=== PATIENT | female | born 1970 | race Caucasian/White ===

== ENCOUNTER → 2018-07-22 | Outpatient (CLI) | payer OTHER ==
[~2018-07-22] MED LIST: ADVAIR 500/501 EA INH; CYCLOBENZAPRINE10 MG PO; DESOXIMETASONE15 G1 TOP; DIATRIZOATE MEGL/DIATRIZOA SOD 30 ML BTL PO ONE; IOPAMIDOL 370 MG/ML 200 ML INFUS..BTL INJ ONE; NEXIUM PO; PANTANASE; PERCOCET 5-3251 EACH PO; QVAR7.3 GM INH; SINGULAIR10 MG PEG; SODIUM CHLORIDE 0.9% 50ML 50 ML ONE; TYLENOL WITH C1 EACH PO
--- NOTE | 2018-07-22 18:55 | Diagnostic Imaging Report ---
EXAM: CT Abdomen and Pelvis WITH contrast INDICATION: \[id number] \S\[id number] \S\RT SIDED ABD PAIN COMPARISON: None. TECHNIQUE: Abdomen and pelvis were scanned utilizing a multidetector helical scanner from the lung base to the pubic symphysis after administration of IV contrast. Coronal and sagittal reformations were obtained. Routine protocol was performed. Scan was performed when during portal venous phase. IV CONTRAST: 100 mL of Isovue-370 ORAL CONTRAST: Gastrografin RADIATION DOSE: Total DLP: 696.3 mGy*cm Estimated effective dose: (DLP x 0.015 x size factor) mSv COMPLICATIONS: None FINDINGS: LINES and TUBES: None. LOWER THORAX: Unremarkable HEPATOBILIARY: 10 mm hypodense lesion within the liver on series 2, image 22, adjacent to the portal vein likely a cyst. No biliary ductal dilation. GALLBLADDER: Cholecystectomy. SPLEEN: No splenomegaly. PANCREAS: No focal masses or ductal dilatation. ADRENALS: No adrenal nodules KIDNEYS/URETERS: Kidneys enhance symmetrically. No hydronephrosis. No cystic or solid mass lesions. No stones. GI TRACT: Mild circumferential wall thickening of the terminal ileum and a few loops of small bowel in the right lower quadrant, better seen on coronal image 51. Large amount of retained stool throughout the ascending and transverse colon without bowel dilatation. Appendix is small in size without inflammatory changes (series 2, image 63). No diverticulosis or diverticulitis. PELVIC ORGANS/BLADDER: Hysterectomy. The urinary bladder appears unremarkable. LYMPH NODES: No lymphadenopathy. VESSELS: Unremarkable. PERITONEUM / RETROPERITONEUM: No free air or fluid. BONES: Degenerative changes at L5-S1. SOFT TISSUES: Unremarkable. IMPRESSION: 1. Non-specific wall thickening of the terminal ileum and a few loops of the small bowel in the right lower quadrant without surrounding fat stranding or fluid collections suggestive of chronic inflammatory bowel disease. No bowel dilatation. - Recommend follow-up CT abdomen and pelvis in 10-12 weeks to demonstrate stability. 2. Normal appendix. These findings were communicated via phone message directly to Mrs Marnie MIMS) on 07/22/2018 6:49 PM. Signed by: Dr. Barbra Montanez M.D. on 07/22/2018 6:51 PM
== END ==
LOC: CT 16:30
PROVIDERS: ATTEND Family Medicine
DX: R10.9 Unspecified abdominal pain (principal)
CPT/HCPCS: 74177; Q9967

== ENCOUNTER → 2018-07-29 | Day surgery (SDC) | payer OTHER ==
[~2018-07-29] MED LIST changes: -DIATRIZOATE MEGL/DIATRIZOA SOD 30 ML BTL PO ONE; +FENTANYL CITRATE/PF 100MCG/2 ML INJ ONE; +FLUTICASONE PRO16 GM; +HYOSCYAMINE SULFATE 0.5 MG/ML AMP ONE; -IOPAMIDOL 370 MG/ML 200 ML INFUS..BTL INJ ONE; +LIDOCAINE HCL 2% LOCAL INJ 5 ML SDV VIAL INJ ONE; +MIDAZOLAM HCL 2 MG/2 ML VIAL ONE; +PATADAY2.5 ML; +PROPOFOL IV EMULSION 10 MG/ML 20 ML VIAL ONE; -SODIUM CHLORIDE 0.9% 50ML 50 ML ONE; +VENTOLIN HFA18 GM INH; +ZAFIRLUKAST20 MG PO
[2018-07-29 13:44] VITALS: BP 109/78
--- NOTE | 2018-07-29 14:07 | Operative Report ---
DATE OF PROCEDURE: July 29, 2018 REFERRING PHYSICIAN: Dr. Jay Roberts PROCEDURES PERFORMED 1. Esophagogastroduodenoscopy with biopsies. 2. Colonoscopy with biopsies. INDICATIONS FOR EGD: Acid reflux and nausea. INDICATIONS FOR COLONOSCOPY: Lower abdominal pain and diarrhea. MEDICATION: Patient was done under MAC. Please see anesthesiologist's note. PROCEDURE: With the patient in the left lateral decubitus position, the flexible fiberoptic Olympus gastroscope was introduced into the esophagus under direct visualization without any difficulty. There was some patchy erythema noted in the distal esophagus. A minute nodule was noted at the GE junction that was biopsied. The scope was then advanced with ease into the stomach traversing a small sliding hiatal hernia. Mucosa overlying the antrum and the body revealed some patchy erythema and low-grade edema, and biopsies were obtained and sent to stain for H. pylori. Some minute hyperplastic appearing polyps were noted in the distal and midbody, and some were partially excised with a cold biopsy forceps. The pylorus was somewhat stenotic, but it opened up nicely with repetitive intubation with the scope, which was advanced to the 2nd portion of the duodenum. Biopsies were obtained from the proximal 2nd portion to rule out sprue considering the patient's history of diarrhea. Mucosa overlying the duodenal bulb appeared to be within normal limits. The scope was then withdrawn back into the stomach and retroflexed. The mucosa overlying the fundus and the cardia appeared to be within normal limits. The scope was then straightened out. The stomach was decompressed. The scope was subsequently withdrawn. Patient tolerated the procedure well. IMPRESSION 1. Mild distal esophagitis. 2. Minute nodule, gastroesophageal junction, biopsied. 3. Small sliding hiatal hernia. 4. Gastritis, biopsied. Biopsies sent to stain for Helicobacter pylori. 5. Gastric polyps, minute, hyperplastic appearing. Some partially excised with the cold biopsy forceps. 6. Rule out sprue. PLAN: Follow up histology. Initiate Protonix 40 mg 1 p.o. q.a.m. a.c. Patient was then turned around. After adequate lubrication of the anal canal, a flexible fiberoptic Olympus colonoscope was inserted into the rectum with ease and advanced all the way to the cecum. Mucosa overlying the cecum appeared to be within normal limits. The ileocecal valve was intubated and the scope was advanced into the terminal ileum. Biopsies were obtained. The scope was then withdrawn back into the colon. It was then withdrawn slowly. Mucosa overlying the ascending and the transverse colon appeared to be within normal limits. Mild patchy inflammatory changes were noted in the left colon and random biopsies were obtained. The scope was then retroflexed into the distal rectum and small internal hemorrhoids were noted, none of which was actively bleeding. The scope was then straightened out. It was subsequently withdrawn after securing an adequate stool specimen that was sent for the appropriate stool studies. Patient tolerated the procedure well. IMPRESSION 1. Mild patchy left-sided colitis. 2. Internal hemorrhoids, none actively bleeding. PLAN: Follow up histology. Initiate VSL #1 one p.o. daily and Bentyl 10 mg 1 p.o. t.i.d. Patient might benefit from a followup colonoscopy in 5-10 years. Job#: [id number] SHIVA cc:VÍCTOR ROBERTS DO
[2018-07-30 14:36] LABS: C DIFFICILE TOXIN A&B AMP PROB NEGATIVE (NEGATIVE); WBC,FECAL (FECAL LACTOFERRIN) NEGATIVE (NEGATIVE)
== END | disposition home or self-care (01) ==
LOC: OR 10:36
PROVIDERS: ATTEND Internal Medicine Gastroenterology
DX: K51.50 Left sided colitis without complications (principal); K31.7 Polyp of stomach and duodenum; K29.70 Gastritis, unspecified, without bleeding; K21.0 Gastro-esophageal reflux disease with esophagitis; K44.9 Diaphragmatic hernia without obstruction or gangrene; K64.8 Other hemorrhoids; J45.909 Unspecified asthma, uncomplicated; M54.5 Low back pain; T78.40XA Allergy, unspecified, initial encounter; X58.XXXA Exposure to other specified factors, initial encounter; Z80.0 Family history of malignant neoplasm of digestive organs
CPT/HCPCS: 43239; 45380; 83630; 83993; 87045; 87177; 87328; 87493; J1980; J2001; J2250; 45378

== ENCOUNTER 2018-10-02 13:40 | Emergency (ER) | payer BC, OTHER ==
[~2018-10-02] VITALS: Ht 160 cm; Wt 81.6 kg
[~2018-10-02 13:40] MED LIST changes: -FENTANYL CITRATE/PF 100MCG/2 ML INJ ONE; -HYOSCYAMINE SULFATE 0.5 MG/ML AMP ONE; -LIDOCAINE HCL 2% LOCAL INJ 5 ML SDV VIAL INJ ONE; -MIDAZOLAM HCL 2 MG/2 ML VIAL ONE; -PROPOFOL IV EMULSION 10 MG/ML 20 ML VIAL ONE
[2018-10-02] MEDS ORDERED: SODIUM CHLORIDE 0.9% 1000ML 1,000 ML IV STA (13:59)
[2018-10-02] MEDS ORDERED: DIATRIZOATE MEGL/DIATRIZOA SOD 30 ML BTL PO ONE (14:08)
[2018-10-02 14:22] LABS: BASOPHILS # (AUTO) 0.1 (0.0-0.1); BASOPHILS % 1.7 % (0.0-1.0); EOSINOPHILS # (AUTO) 1.3 (0.0-0.4); HEMOGLOBIN 13.6 g/dL (12.0-16.0); LYMPHOCYTES # (AUTO) 1.6 (1.0-3.2); MEAN CORPUSCULAR HEMOGLOBIN 29.2 pg (28-32); MEAN CORPUSCULAR HGB CONC 33.2 g/dL (31-35); MONOCYTES # (AUTO) 0.4 (0.2-0.8); MONOCYTES % 6.9 % (4.4-11.3); NEUTROPHILS % 36.2 % (38.7-80.0); PLATELET COUNT 258 x10e3/uL (140-360); RED BLOOD COUNT 4.66 x10e6/uL (3.6-5.1); RED CELL DISTRIBUTION WIDTH 12.9 % (11.7-14.4)
[2018-10-02] MEDS ORDERED: HYDROMORPHONE 2MG/ML 2 MG/ML ML IV ONE ×2 (14:30→19:00)
[2018-10-02] MEDS ORDERED: ONDANSETRON HCL INJ 2 MG/ML VIAL IV ONE (14:30)
[2018-10-02] MEDS ORDERED: FAMOTIDINE 20 MG/2 ML VIAL IV ONE ×2 (14:30→18:01)
[2018-10-02 14:46] LABS: BILIRUBIN,URINE NEGATIVE (NEGATIVE); CLARITY,URINE HAZY (CLEAR); COLOR,URINE YELLOW (YELLOW); KETONES,URINE NEGATIVE (NEGATIVE); LEUKOCYTE ESTERASE ,URINE NEGATIVE (NEGATIVE); NITRITE,URINE NEGATIVE (NEGATIVE); PROTEIN,URINE DIPSTICK NEGATIVE (NEGATIVE); URINE UROBILINOGEN 0.2 mg/dL (0.2 - 1)
[2018-10-02 14:51] LABS: BACTERIA,URINE FEW /HPF; EPITHELIAL CELLS,URINE MODERATE /LPF; RBC,URINE 0-5 /HPF (0-5); WBC,URINE (MAN) 0-5 /HPF (0-5)
[2018-10-02 15:07] LABS: ALANINE AMINOTRANSFERASE 54 IU/L (0-55); ALBUMIN/GLOBULIN RATIO 1.1 (0.8-2.0); ALKALINE PHOSPHATASE 65 IU/L (40-150); AMYLASE 75 U/L (25-125); ANION GAP 13.9 mmol/L (8-16); BLOOD UREA NITROGEN 14 mg/dL (7-26); BUN/CREATININE RATIO 16 (6-25); CALCIUM 9.8 mg/dL (8.4-10.2); CARBON DIOXIDE 25 mmol/L (22-29); CHLORIDE 105 mmol/L (98-107); CREATININE, SERUM 0.86 mg/dL (0.57-1.11); EST GLOMERULAR FILTRATION RATE > 60 ML/MIN (60-); GLUCOSE 93 mg/dL (74-118); LIPASE 18 U/L (8-78); POTASSIUM 3.9 mmol/L (3.5-5.1); SODIUM 140 mmol/L (136-145)
--- NOTE | 2018-10-02 16:36 | Diagnostic Imaging Report ---
EXAMINATION: CT of the abdomen and pelvis with contrast. TECHNIQUE: Spiral CT images of the abdomen and pelvis were performed from the lung bases to the lesser trochanters after the intravenous administration of 100 cc of Isovue 370 and the oral administration of water. Coronal and sagittal reformatted images were obtained. COMPARISON: CT abdomen and pelvis 07/22/2018 CLINICAL HISTORY:Abdominal pain and distention for 3 days DISCUSSION: ABDOMEN/PELVIS: LOWER THORAX:Unremarkable. HEPATOBILIARY: Diffuse hepatic steatosis. Stable 1.1 cm hypodense lesion in hepatic segment VIII/V, likely a cyst (series 2, image 18) No intra or extrahepatic biliary ductal dilation. GALLBLADDER: Cholecystectomy clips. SPLEEN: No splenomegaly. PANCREAS: No focal masses or ductal dilatation. ADRENALS: No adrenal nodules. KIDNEYS/URETERS: No hydronephrosis, stones, or solid mass lesions. PELVIC ORGANS/BLADDER: Bladder is unremarkable. Uterus is absent. No adnexal masses. PERITONEUM/RETROPERITONEUM: No free air or fluid. LYMPH NODES: No intra-abdominal, retroperitoneal, pelvic or inguinal lymphadenopathy. VESSELS: The celiac trunk,superior and inferior mesenteric and bilateral renal arteries are patent The portal, superior mesenteric and splenic veins are patent. GI TRACT: No bowel dilation or evidence of obstruction. No pericolonic inflammatory changes. No increased vascularity. Small appendix is again noted, without dilation or surrounding stranding. BONES AND SOFT TISSUE: No aggressive lytic lesions. Degenerative disc changes L5-S1, which are stable. No soft tissue abnormalities. IMPRESSION: 1. No acute abdominal pelvic abnormalities. No bowel dilation or evidence of obstruction. 2. Diffuse hepatic steatosis. Signed by: Dr. Walker Silva M.D. on 10/02/2018 4:33 PM
[2018-10-02] MEDS ORDERED: SODIUM CHLORIDE 0.9% 1000ML 1,000 ML ONE (17:59)
[2018-10-02] MEDS ORDERED: ONDANSETRON HCL INJ 2 MG/ML VIAL ONE (18:00)
[2018-10-02] MEDS ORDERED: HYDROMORPHONE 2MG/ML 2 MG/ML ML ONE (18:02)
[2018-10-02] MEDS ORDERED: CLINDAMYCIN PHOS 900MG/ 50ML 50 ML IV ONE (19:00)
[2018-10-02] MEDS ORDERED: SODIUM CHLORIDE 0.9% 50ML 50 ML ONE (20:16)
[2018-10-02] MEDS ORDERED: IOPAMIDOL 370 MG/ML 200 ML INFUS..BTL INJ ONE (20:16)
[2018-10-05] MEDS ORDERED: PANTOPRAZOLE SO40 MG PO (10:58)
== END 2018-10-02 20:05 | disposition home or self-care (01) ==
LOC: ER 13:40
DX: R10.33 Periumbilical pain (principal); L03.311 Cellulitis of abdominal wall; L40.9 Psoriasis, unspecified
CPT/HCPCS: 36415; 74177; 80053; 81001; 82150; 83690; 84702; 85025; 99284; J1170; J2405; J7030; Q9663; Q9967

== ENCOUNTER 2018-10-04 17:27 | Emergency (ER) | payer BC ==
[~2018-10-04 17:27] MED LIST changes: -PANTOPRAZOLE SO40 MG PO
[2018-10-05] MEDS ORDERED: PANTOPRAZOLE SO40 MG PO (10:58)
== END 2018-10-04 17:45 | disposition short-term general hospital (02) ==
LOC: ER 17:27
DX: Z41.9 Encounter for procedure for purposes other than remedying health state, unspecified (principal)

== ENCOUNTER → 2018-10-04 | Outpatient (CLI) | payer OTHER ==
[~2018-10-04] MED LIST changes: +PANTOPRAZOLE SO40 MG PO
--- NOTE | 2018-10-04 21:33 | Diagnostic Imaging Report ---
Exam: Limited abdominal ultrasound Indication: Abdominal wall mass Comparison: CT of the abdomen and pelvis October 02, [address] of the abdomen and pelvis July 22, 2018. Findings: Grayscale and color Doppler images of the palpable area of concern, midline superior to the umbilicus, corresponds to an approximately 3 cm subcutaneous fluid and fat filled structure without internal hypervascularity. Impression: Palpable midline abdominal wall area of concern corresponds to fat and fluid filled supraumbilical ventral hernia. When comparing CT from July 22, 2018 to October 02, 2018, there has been interval increase in size of the fat-containing hernia sac and interval development of fluid within the sac and mild surrounding inflammation. This finding suggests fat strangulation given clinical finding of incarceration. This study was discussed with Winnie Bolaños October 04, 2018 at 2128 hours. Signed by: Dr. Shannon Sharpe M.D. on 10/04/2018 9:30 PM
== END ==
LOC: US 14:21
PROVIDERS: ATTEND Family Medicine
DX: R22.2 Localized swelling, mass and lump, trunk (principal)
CPT/HCPCS: 76705

== ENCOUNTER → 2018-10-05 | Day surgery (SDC) | payer OTHER ==
[~2018-10-05] MED LIST changes: +ACETAMINOPHEN 1000 MG/100 ML IV ONE; +BUPIVACAINE 0.25%/EPI 30ML SDV INJ ONE; +CEFAZOLIN SOD 1 GM VIAL ONE; +DEXAMETHASONE SOD PHOS INJ 4 MG/ML VIAL ONE; +FENTANYL CITRATE/PF 100MCG/2 ML INJ ONE; +GLYCOPYRROLATE INJ 1MG/ 5 ML SYR ONE; +KETOROLAC TROMETHAMINE 30 MG/ML VIAL ONE; +LIDOCAINE HCL 2% LOCAL INJ 5 ML SDV VIAL INJ ONE; +METOCLOPRAMIDE HCL 10 MG/2ML VIAL ONE; +MIDAZOLAM HCL 2 MG/2 ML VIAL ONE; +NEOSTIGMINE 5 MG/5ML SYR ONE; +ONDANSETRON HCL INJ 2 MG/ML VIAL ONE; +PANTOPRAZOLE SO40 MG PO; +PROMETHAZINE HCL (IM) 25 MG/ML VIAL ONE; +PROPOFOL IV EMULSION 10 MG/ML 20 ML VIAL ONE; +ROCURONIUM BROMIDE 10 MG/ML 5ML VIAL ONE; +SEVOFLURANE INHAL SOLN 250 ML PEN BTL ONE
--- NOTE | 2018-10-05 14:14 | Operative Report ---
DATE OF PROCEDURE: October 05, 2018 PREOPERATIVE DIAGNOSIS: Strangulated ventral hernia. POSTOPERATIVE DIAGNOSIS: Strangulated ventral hernia. OPERATION PERFORMED: Repair of strangulated ventral hernia with Ventralex patch and omentectomy. ANESTHESIA: General. COMPLICATIONS: None. ESTIMATED BLOOD LOSS: Minimal. DESCRIPTION OF PROCEDURE: With the patient lying in bed in supine position, under general endotracheal anesthesia, the abdomen was prepped with Betadine solution and draped in the usual manner. A transverse incision was made in the upper abdomen over the bulging mass that was present in the subxiphoid region. This was taken down through the subcutaneous tissue, and immediately a hernia sac was identified. The fascia was then identified at the base of the hernia and cleared all the way around with normal fascia all the way around. The hernia sac was then opened, and some clear fluid was encountered. There was some omentum incarcerated within the hernia sac, and this was ligated with 2-0 Vicryl and divided. The excess of the hernia sac was then resected, and it was all sent for pathological examination. Although the patient had a strangulation, there was no actual necrotic tissue, so we decided to go ahead and do a repair with mesh because the patient has significant weakness all the way around in the area. Therefore, a medium-size Ventralex patch was then placed in the preperitoneal space and deployed without any difficulty. The defect was then closed transversely using interrupted sutures of #0 Ethibond, anchoring the mesh on the way out. The whole area was then thoroughly irrigated. Perfect hemostasis was ascertained. All layers were infiltrated on the way out with solution of 1/4 percent Marcaine. Subcutaneous tissue was then approximated with interrupted sutures of 2-0 chromic, and the skin was closed with clips. A dressing was applied. The sponge, lap and needle count was correct. The patient tolerated the procedure well and returned to the recovery room in stable condition. Job#: [id number]
[2018-10-05 15:30] VITALS: BP 108/71
== END | disposition home or self-care (01) ==
LOC: OR 10:26
PROVIDERS: ATTEND Surgery
DX: K43.6 Other and unspecified ventral hernia with obstruction, without gangrene (principal); J45.909 Unspecified asthma, uncomplicated
CPT/HCPCS: 49561; 49568; 88302; 93005; C1781; J0131; J0690; J1100; J1885; J2001; J2250; J2405; J2550; J2704; J2765; J3490

== ENCOUNTER 2022-06-17 15:51 | Emergency (ER) | payer BC ==
[~2022-06-17] VITALS: Ht 160 cm; Wt 78.1 kg
[~2022-06-17 15:51] MED LIST changes: -ACETAMINOPHEN 1000 MG/100 ML IV ONE; -BUPIVACAINE 0.25%/EPI 30ML SDV INJ ONE; -CEFAZOLIN SOD 1 GM VIAL ONE; -DEXAMETHASONE SOD PHOS INJ 4 MG/ML VIAL ONE; -FENTANYL CITRATE/PF 100MCG/2 ML INJ ONE; -GLYCOPYRROLATE INJ 1MG/ 5 ML SYR ONE; -KETOROLAC TROMETHAMINE 30 MG/ML VIAL ONE; -LIDOCAINE HCL 2% LOCAL INJ 5 ML SDV VIAL INJ ONE; -METOCLOPRAMIDE HCL 10 MG/2ML VIAL ONE; -MIDAZOLAM HCL 2 MG/2 ML VIAL ONE; -NEOSTIGMINE 5 MG/5ML SYR ONE; -ONDANSETRON HCL INJ 2 MG/ML VIAL ONE; -PROMETHAZINE HCL (IM) 25 MG/ML VIAL ONE; -PROPOFOL IV EMULSION 10 MG/ML 20 ML VIAL ONE; -ROCURONIUM BROMIDE 10 MG/ML 5ML VIAL ONE; -SEVOFLURANE INHAL SOLN 250 ML PEN BTL ONE
[2022-06-17] MEDS ORDERED: FAMOTIDINE 20 MG/2 ML VIAL IV STA (16:13)
[2022-06-17] MEDS ORDERED: ONDANSETRON HCL INJ 2MG/ML 2ML 2 MG/ML VIAL IV STA (16:13)
[2022-06-17] MEDS ORDERED: SODIUM CHLORIDE 0.9% 1000ML 1,000 ML IV STA (16:14)
[2022-06-17] MEDS ORDERED: IOPAMIDOL 370 MG/ML 100 ML INFUS..BTL INJ ONE (16:33)
[2022-06-17] MEDS ORDERED: ONDANSETRON HCL INJ 2MG/ML 2ML 2 MG/ML VIAL ONE (16:35)
[2022-06-17] MEDS ORDERED: FAMOTIDINE 20 MG/2 ML VIAL IV ONE (16:36)
[2022-06-17] MEDS ORDERED: BACTRIM DS TAB1 EACH PO (17:17)
== END 2022-06-17 17:24 | disposition home or self-care (01) ==
LOC: FSED 15:59
DX: R10.32 Left lower quadrant pain (principal); N39.0 Urinary tract infection, site not specified; K76.0 Fatty (change of) liver, not elsewhere classified; J45.909 Unspecified asthma, uncomplicated; M54.9 Dorsalgia, unspecified; G89.29 Other chronic pain
CPT/HCPCS: 74177; 80048; 80076; 81003; 85025; 87086; 96374; 96375; 99284; J2405; Q9967

== ENCOUNTER → 2022-06-23 | Day surgery (SDC) | payer BC ==
[~2022-06-23] MED LIST changes: +BACTRIM DS TAB1 EACH PO; +FENTANYL CITRATE/PF 100MCG/2 ML INJ ONE; +HYOSCYAMINE SULFATE 0.5 MG/ML INJ ONE; +LIDOCAINE HCL 2% LOCAL INJ 5 ML SDV VIAL INJ ONE; +METOCLOPRAMIDE HCL 10 MG/2ML VIAL ONE; +MIDAZOLAM HCL 5 MG/ML VIAL ONE; +PROPOFOL IV EMULSION 10 MG/ML 20 ML VIAL ONE; +SIMETHICONE 40 MG/0.6 ML BTL ONE
[2022-06-23 16:05] VITALS: BP 114/84
== END | disposition home or self-care (01) ==
LOC: OR 10:47
PROVIDERS: ATTEND Internal Medicine Gastroenterology
DX: K29.70 Gastritis, unspecified, without bleeding (principal); D12.2 Benign neoplasm of ascending colon; K26.9 Duodenal ulcer, unspecified as acute or chronic, without hemorrhage or perforation; K52.9 Noninfective gastroenteritis and colitis, unspecified; K21.9 Gastro-esophageal reflux disease without esophagitis; K20.90 Esophagitis, unspecified without bleeding; K22.89 Other specified disease of esophagus; K44.9 Diaphragmatic hernia without obstruction or gangrene; K57.30 Diverticulosis of large intestine without perforation or abscess without bleeding; K62.89 Other specified diseases of anus and rectum; K64.8 Other hemorrhoids; Z71.3 Dietary counseling and surveillance; J45.909 Unspecified asthma, uncomplicated; Z01.810 Encounter for preprocedural cardiovascular examination; Z01.812 Encounter for preprocedural laboratory examination; Z20.822 Contact with and (suspected) exposure to COVID-19; Z79.899 Other long term (current) drug therapy; Z68.30 Body mass index [BMI] 30.0-30.9, adult; Z86.16 Personal history of COVID-19; Z80.0 Family history of malignant neoplasm of digestive organs
CPT/HCPCS: 0223U; 36415; 43239; 45380; 93005; C9113; J1980; J2001; J2250; J2704; J2765; J3010; 45378